=== PATIENT | female | born 2000 | race Caucasian/White ===

== ENCOUNTER 2024-07-11 19:32 | Emergency (ER) | payer OTHER ==
[2024-07-11 19:57] VITALS: TEMP 99.5
--- NOTE | 2024-07-11 20:06 | ERPHSYRPT ---
- History of Present Illness Time Seen by Provider: 07/11/24 19:51 Historian: patient, family Exam Limitations: no limitations Patient Subjective Stated Complaint: c/o left lower abdominal pain Triage Nursing Assessment: patient brought to ED by with c/o left lower abdominal pain. Patient stated that symptoms started yesterday morning. patient believes she is constipated. rates pain 8/10, bowel sounds present in all 4 quads, pain with palpation, nausea, denies V/D, denies radiating pain, hypertensive, skin w/n/d, brought in by wheelchair. Physician History: 23-year-old with history of PCOS, hypertension presented in the ER with complaint of left flank pain since yesterday. Patient reports 8/10 intensity sharp pain with some radiation to the left groin, associated nausea but no vomiting. Reports having loose stool since yesterday. Denies any urinary complaints. No vaginal bleeding or discharge. LMP 1 month ago. Allergies/Adverse Reactions: No Known Drug Allergies Allergy (Verified 07/11/24 19:58) Home Medications: lisinopriL [Lisinopril] 5 mg PO DAILY 07/11/24 [History] norethindrone ac-eth estradioL [Microgestin 21 1.5-30 Tab] 1 tab PO DAILY 07/11/24 [History] Hx Tetanus, Diphtheria Vaccination/Date Given: No (unknown) Hx Influenza Vaccination/Date Given: No Hx Pneumococcal Vaccination/Date Given: No Travel Risk - International Travel Have you traveled outside of the country in past 3 weeks: Yes ( has been out of the states) If Yes, where;: . - Emerging Infectious Disease Are you exhibiting symptoms associated with any current EIDs: Yes Symptoms: Abdominal Pain - Review of Systems Constitutional: No Symptoms Ears, Nose, & Throat: No Symptoms Respiratory: No Symptoms Cardiac: No Symptoms Abdominal/Gastrointestinal: Abdominal Pain, Nausea Genitourinary Symptoms: Flank Pain Musculoskeletal: No Symptoms Skin: No Symptoms Neurological: No Symptoms Endocrine: No Symptoms Hematologic/Lymphatic: No Symptoms - Past Medical History Pertinent Past Medical History: Yes Neurological History: No Pertinent History ENT History: No Pertinent History Cardiac History: Hypertension Respiratory History: No Pertinent History Endocrine Medical History: No Pertinent History Musculoskeletal History: No Pertinent History GI Medical History: No Pertinent History History: No Pertinent History Psycho-Social History: No Pertinent History Female Reproductive Disorders: No Pertinent History - Past Surgical History Past Surgical History: Yes Female Surgical History: Section Other Surgical History: in May, - Female History Hx Last Menstrual Period: a month ago Hx Now: No ( control) - Social History Smoking Status: Never smoker Exposure to second hand smoke: No Drug Use: none - Social Determinants of Health Will the patient participate in the screening: Yes Do you worry about a steady place to live?: No Do you have any problems with any of the following?: No known problems In the past 12 months,have you had to go without utilities?: No Transportation Issues: No Has anyone in your support network made you feel unsafe?: No Have you or anyone in your house had to go without enough: No - Nursing Vital Signs Nursing Vital Signs: Initial Vital Signs Temperature 99.5 F 07/11/24 19:43 Pulse Rate 92 H 07/11/24 19:43 Respiratory Rate 24 07/11/24 19:43 Blood Pressure 161/95 07/11/24 19:43 O2 Sat by Pulse Oximetry 100 07/11/24 19:43 Pain Scale Pain Intensity 3 - Physical Exam General Appearance: no apparent distress Eye Exam: PERRL/EOMI Ears, Nose, Throat Exam: normal ENT inspection Neck Exam: normal inspection, full range of motion Respiratory Exam: normal breath sounds, lungs clear Cardiovascular Exam: regular rate/rhythm, normal heart sounds Gastrointestinal/Abdomen Exam: soft, normal bowel sounds, tenderness (Left flank) Back Exam: normal inspection, normal range of motion, CVA tenderness (Left side) Extremity Exam: normal inspection, normal range of motion Neurologic Exam: alert, oriented x 3, cooperative Skin Exam: normal color SpO2 Interpretation: normal SpO2: 100 O2 Delivery: Room Air Ordered Tests: Active Orders 24 hr Category Date Time Status IV Insertion STAT Care 07/11/24 20:03 Active NPO (ED) STAT Care 07/11/24 20:03 Active ABDOMEN AND PELVIS W/0 CONTRAS [CT] Stat Exams 07/11/24 20:35 Taken CBC W DIFF Stat Lab 07/11/24 19:55 Completed CMP Stat Lab 07/11/24 19:55 Completed CULTURE,URINE Stat Lab 07/11/24 20:07 Received HCG QUALITATIVE, SERUM Stat Lab 07/11/24 19:55 Completed LIPASE Stat Lab 07/11/24 19:55 Completed Lactic Acid Stat Lab 07/11/24 20:03 Completed Lactic Acid Stat Lab 07/11/24 22:20 Received UA W/RFX UR CULTURE Stat Lab 07/11/24 20:07 Completed Medication Summary Discontinued Medications Generic Name Dose Route Start Last Admin Trade Name Monika PRN Reason Stop Dose Admin Sodium Chloride 1,000 mls @ 999 mls/hr 07/11/24 20:03 07/11/24 22:17 Sodium Chloride 0.9% 1000 Ml IV 07/11/24 21:03 Infused .Q1H1M STA Infusion Sodium Chloride Confirm 07/11/24 20:08 Sodium Chloride 0.9% 1000 Ml Administered 07/11/24 20:09 Dose 1,000 mls @ ud .ROUTE .STK-MED ONE Ceftriaxone Sodium 2 gm in 100 mls @ 200 mls/hr 07/11/24 22:06 07/11/24 22:19 Rocephin 2 Gm/100 Ml Nacl IV 07/11/24 22:35 200 mls/hr STAT ONE 200 mls/hr Administration Ceftriaxone Sodium Confirm 07/11/24 22:18 Rocephin 2 Gm/100 Ml Nacl Administered 07/11/24 22:19 Dose 2 gm in 100 mls @ ud IV .STK-MED ONE Ketorolac Tromethamine 30 mg 07/11/24 22:36 07/11/24 22:49 Ketorolac Tromethamine 30 Mg/Ml Inj IV 07/11/24 22:37 30 mg STAT ONE Administration Ketorolac Tromethamine Confirm 07/11/24 22:48 Ketorolac Tromethamine 30 Mg/Ml Inj Administered 07/11/24 22:49 Dose 30 mg .ROUTE .STK-MED ONE Morphine Sulfate 4 mg 07/11/24 20:03 07/11/24 20:13 Morphine Sulfate 4 Mg/Ml Injection IV 07/11/24 20:04 4 mg STAT ONE Administration Morphine Sulfate Confirm 07/11/24 20:08 Morphine Sulfate 4 Mg/Ml Injection Administered 07/11/24 20:09 Dose 4 mg .ROUTE .STK-MED ONE Ondansetron HCl 4 mg 07/11/24 20:03 07/11/24 20:12 Ondansetron Hcl 4 Mg/2 Ml Vial IV 07/11/24 20:04 4 mg STAT ONE Administration Ondansetron HCl Confirm 07/11/24 20:08 Ondansetron Hcl 4 Mg/2 Ml Vial Administered 07/11/24 20:09 Dose 4 mg .ROUTE .K-MED ONE Lab/Rad Data: Laboratory Result Diagrams 07/11/24 19:55 07/11/24 19:55 Laboratory Results 07/11/24 07/11/24 07/11/24 Range/Units 20:07 20:03 19:55 WBC (3.98-10.04) x10^3/uL RBC (3.93-5.22) x10^6/uL Hgb (11.2-15.7) g/dL Hct (34.1-44.9) % MCV (79.4-94.8) fL MCH (25.6-32.2) pg MCHC (32.2-35.5) g/dL RDW (11.7-14.4) % Plt Count (182-369) x10^3/uL MPV (9.4-12.3) fL Gran % (34.0-71.1) % Immature Gran % (Auto) (0.001-0.429) % Nucleat RBC Rel Count (0.00-0.2) % Eos # (Auto) (0.04-0.36) x10^3/uL Immature Gran # (Auto) (0.001-0.031) x10^3u/L Absolute Lymphs (auto) (1.18-3.74) x10^3/uL Absolute Monos (auto) (0.24-0.86) x10^3/uL Absolute Nucleated RBC (0.00-0.012) x10^3u/L Lymphocytes % (19.3-51.7) % Monocytes % (4.7-12.5) % Eosinophils % (0.7-5.8) % Basophils % (0.1-1.2) % Absolute Granulocytes (1.56-6.13) x10^3/uL Basophils # (0.01-0.08) x10^3/uL Sodium (135-145) mmol/L Potassium (3.5-5.1) mmol/L Chloride (98-107) mmol/L Carbon Dioxide (22-30) mmol/L Anion Gap (5-15) MEQ/L BUN (7-17) mg/dL Creatinine (0.52-1.04) mg/dL Estimated GFR ML/MIN Glucose (74-106) mg/dL Lactic Acid 2.7 H (0.4-2.0) Calcium (8.4-10.2) mg/dL Total Bilirubin (0.2-1.3) mg/dL AST (14-36) U/L ALT (0-35) U/L Alkaline Phosphatase (38-126) U/L Serum Total Protein (6.3-8.2) g/dL Albumin (3.5-5.0) g/dL Lipase (23-300) U/L Serum HCG, Qual NEGATIVE (NEGATIVE) Urine Color Yellow (Yellow) Urine Appearance Clear (Clear) Urine pH 7.5 (4.6-8.0) Ur Specific [place] 1.015 (1.005-1.030) Urine Protein 300 A (Negative) Urine Glucose (UA) Negative (Negative) mg/dL Urine Ketones Negative (Negative) Urine Blood Negative (Negative) Urine Nitrite Negative (Negative) Urine Bilirubin Negative (Negative) Urine Urobilinogen 0.2 (0.2) mg/dL Ur Leukocyte Esterase Trace A (Negative) U Hyaline Cast (Auto) NONE SEEN (0-2) /LPF Urine Microscopic RBC 0-2 (0-5) /HPF Urine Microscopic WBC 21-50 A (0-5) /HPF Ur Epithelial Cells Few (None Seen) /HPF Urine Bacteria Few A (None Seen) /HPF Urine Culture Reflexed YES (NO) 07/11/24 07/11/24 Range/Units 19:55 19:55 WBC 10.1 H (3.98-10.04) x10^3/uL RBC 4.55 (3.93-5.22) x10^6/uL Hgb 12.6 (11.2-15.7) g/dL Hct 38.2 (34.1-44.9) % MCV 84.0 (79.4-94.8) fL MCH 27.7 (25.6-32.2) pg MCHC 33.0 (32.2-35.5) g/dL RDW 12.0 (11.7-14.4) % Plt Count 482 H (182-369) x10^3/uL MPV 10.1 (9.4-12.3) fL Gran % 64.8 (34.0-71.1) % Immature Gran % (Auto) 0.2 (0.001-0.429) % Nucleat RBC Rel Count 0.0 (0.00-0.2) % Eos # (Auto) 0.16 (0.04-0.36) x10^3/uL Immature Gran # (Auto) 0.02 (0.001-0.031) x10^3u/L Absolute Lymphs (auto) 2.77 (1.18-3.74) x10^3/uL Absolute Monos (auto) 0.59 (0.24-0.86) x10^3/uL Absolute Nucleated RBC 0.00 (0.00-0.012) x10^3u/L Lymphocytes % 27.4 (19.3-51.7) % Monocytes % 5.8 (4.7-12.5) % Eosinophils % 1.6 (0.7-5.8) % Basophils % 0.2 (0.1-1.2) % Absolute Granulocytes 6.54 H (1.56-6.13) x10^3/uL Basophils # 0.02 (0.01-0.08) x10^3/uL Sodium 139 (135-145) mmol/L Potassium 4.4 (3.5-5.1) mmol/L Chloride 104 (98-107) mmol/L Carbon Dioxide 22 (22-30) mmol/L Anion Gap 16.2 H (5-15) MEQ/L BUN 7 (7-17) mg/dL Creatinine 0.68 (0.52-1.04) mg/dL Estimated GFR 124.7 ML/MIN Glucose 106 (74-106) mg/dL Lactic Acid (0.4-2.0) Calcium 9.9 (8.4-10.2) mg/dL Total Bilirubin 0.40 (0.2-1.3) mg/dL AST 21 (14-36) U/L ALT 19 (0-35) U/L Alkaline Phosphatase 68 (38-126) U/L Serum Total Protein 7.7 (6.3-8.2) g/dL Albumin 4.6 (3.5-5.0) g/dL Lipase 84 (23-300) U/L Serum HCG, Qual (NEGATIVE) Urine Color (Yellow) Urine Appearance (Clear) Urine pH (4.6-8.0) Ur Specific [place] (1.005-1.030) Urine Protein (Negative) Urine Glucose (UA) (Negative) mg/dL Urine Ketones (Negative) Urine Blood (Negative) Urine Nitrite (Negative) Urine Bilirubin (Negative) Urine Urobilinogen (0.2) mg/dL Ur Leukocyte Esterase (Negative) U Hyaline Cast (Auto) (0-2) /LPF Urine Microscopic RBC (0-5) /HPF Urine Microscopic WBC (0-5) /HPF Ur Epithelial Cells (None Seen) /HPF Urine Bacteria (None Seen) /HPF Urine Culture Reflexed (NO) - Progress Progress: improved, re-examined Progress Note: 07/11/24 23:15 23-year-old is evaluated in the ER for left flank pain since yesterday with nausea but no vomiting. She is given fluids and symptomatic treatment, on reevaluation her pain is much improved. No peritoneal signs on repeated eval. Has a white count of 10, chemistries fairly unremarkable except for lactate of 2.7 and patient received fluid, does have UTI. She is given a dose of Rocephin. CT abdomen pelvis without contrast is negative for any obstructive stone but did show some stranding and mild dilatation of proximal ureter 7 to 8 mm suggesting recently passed stone versus ureteritis. Patient has no hematuria and has no history of ureterolithiasis, less likely stone but I believe it is more of a infectious etiology. I have discussed with patient the results of workup, also observation at hospital versus going home and she prefers to go home which is reasonable and we will treat it with cefpodoxime to cover for upper urinary tract infection as well. Recommended taking pain medications as needed and outpatient follow-up with primary care and urology. Discussed signs symptoms of worsening needing return to ER which she seems understanding. Stable for discharge. Counseled pt/family regarding: lab results, diagnosis, need for follow-up, rad results Medical Desision Making - Independent Historian Additional History obtained from: Spouse - Diagnostic Testing Diagnostic test were ordered, analyzed, and reviewed by me: Yes Radiological Interpretation: Reviewed by me - Risk of complications The pt has a mod risk of morbidity or mortality based on: Need for prescription drug management - Departure Departure Disposition: Home Clinical Impression: Acute upper urinary tract infection Condition: Stable Critical Care Time: No Referrals: DAVID GIPSON MD [Primary Care Provider] - Follow up/PCP as directed Instructions: Urinary tract infection in adults - ED discharge instructions Additional Instructions: Take ibuprofen and Watson as needed. Drink plenty of fluids. Follow-up with primary care and urology for reevaluation. Return to ER for intractable pain/vomiting/fever chills/difficulty urination etc. Prescriptions: Hydrocodone/Acetaminophen [Hydrocodone-Acetamin 5-325 mg] 1 tab PO Q6HPRN PRN 3 Days #7 tablet MDD 4 PRN Reason: Pain Cefpodoxime Proxetil 200 mg [Vantin 200 mg] 200 mg PO BID 7 Days #14 tablet
[2024-07-11 20:07] LABS: Absolute Neutrophil Ct (ANC) 6.54 x10^3/uL (1.56-6.13); BASOPHIL % 0.2 % (0.1-1.2); Basophil (Absolute #) 0.02 x10^3/uL (0.01-0.08); Eosinophil % 1.6 % (0.7-5.8); Eosinophil (Absolute #) 0.16 x10^3/uL (0.04-0.36); Hematocrit 38.2 % (34.1-44.9); Hemoglobin 12.6 g/dL (11.2-15.7); IMMATURE GRAN # 0.02 x10^3u/L (0.001-0.031); IMMATURE GRAN % 0.2 % (0.001-0.429); Lymphocyte (Absolute #) 2.77 x10^3/uL (1.18-3.74); Lymphocytes % 27.4 % (19.3-51.7); Mean Corpuscular Hemoglobin 27.7 pg (25.6-32.2); Mean Platelet Volume 10.1 fL (9.4-12.3); Monocyte (Absolute #) 0.59 x10^3/uL (0.24-0.86); Monocytes % 5.8 % (4.7-12.5); Neutrophil % 64.8 % (34.0-71.1); Platelet Count 482 x10^3/uL (182-369); Red Blood Count 4.55 x10^6/uL (3.93-5.22); White Blood Count 10.1 x10^3/uL (3.98-10.04)
[2024-07-11] MEDS ORDERED: MORPHINE SULFATE 4 MG INJ ONE (20:08)
[2024-07-11] MEDS ORDERED: Zofran 4 MG/2 ML VIAL ONE (20:08)
[2024-07-11] MEDS ORDERED: Sodium Chloride 0.9% 1000 ML 1,000 ML ONE (20:08)
[2024-07-11] MEDS: Sodium Chloride 0.9% 1000 ML 1,000 ML IV STA (20:10)
[2024-07-11] MEDS: Zofran 4 MG/2 ML VIAL IV ONE (20:12)
[2024-07-11] MEDS: MORPHINE SULFATE 4 MG INJ IV ONE (20:13)
[2024-07-11 20:14] LABS: Appearance Clear (Clear); Bacteria Few /HPF (None Seen); Bilirubin Negative (Negative); Blood Negative (Negative); Epithelial Cells Few /HPF (None Seen); Glucose, Urine Negative (Negative); Hyaline Casts NONE SEEN /LPF (0-2); Ketones Negative (Negative); Leukocyte Esterase Trace (Negative); Nitrite Negative (Negative); Ph 7.5 (4.6-8.0); Protein,Urine Dip 300 (Negative); RBC 0-2 /HPF (0-5); Specific Gravity 1.015 (1.005-1.030); Urobilinogen 0.2 mg/dL (0.2); WBC 21-50 /HPF (0-5)
[2024-07-11 20:24] LABS: HCG SERUM TEST NEGATIVE (NEGATIVE)
[2024-07-11 20:25] LABS: ALBUMIN 4.6 g/dL (3.5-5.0); ANION GAP 16.2 MEQ/L (5-15); BILIRUBIN,TOTAL 0.4 mg/dL (0.2-1.3); Calcium 9.9 mg/dL (8.4-10.2); Creatinine 1 0.68 mg/dL (0.52-1.04); EST GLOMERULAR FILTRATION RATE 124.7 ML/MIN; Potassium 4.4 mmol/L (3.5-5.1); Total Protein 7.7 g/dL (6.3-8.2)
[2024-07-11 21:01] VITALS: RESP 19
[2024-07-11] MEDS ORDERED: ROCEPHIN 2 GM/100 ML NACL 2 GM/100 ML IVPB IV ONE (22:18)
[2024-07-11] MEDS: ROCEPHIN 2 GM/100 ML NACL 2 GM/100 ML IVPB IV ONE (22:19)
[2024-07-11] MEDS ORDERED: TORAdol 30 mg Injection ONE (22:48)
[2024-07-11] MEDS: TORAdol 30 mg Injection IV ONE (22:49)
[2024-07-11 23:09] VITALS: BP 139/96; PULSE 106
[2024-07-11 23:23] VITALS: O2SAT 100
[2024-07-11] MEDS: NORCO 5/325 MG PO ONE (23:28)
[2024-07-11] MEDS ORDERED: NORCO 5/325 MG ONE (23:28)
--- NOTE | 2024-07-12 09:37 | XRAY ---
Indication: Left flank pain. Multiple contiguous axial images obtained through abdomen and pelvis without contrast using renal stone protocol. Comparison: None Lung bases clear. Heart not enlarged. No renal calculus in either system. Proximal left ureter is prominent up to 7-8 mm with stranding either from recent passage of calculus versus ureteritis. No free fluid/air. Remaining liver, gallbladder, pancreas, spleen, adrenal glands, kidneys, ureters, bladder, uterus, and aorta are unremarkable for noncontrast exam. Osseous structures intact. No ventral inguinal hernias. Impression: No renal calculus in either system. Prominent proximal left ureter with stranding either from recent passage of calculus versus ureteritis. Remaining CT abdomen/pelvis without contrast exam is negative.
== END 2024-07-11 23:37 | disposition home or self-care (01) ==
LOC: ED 19:32
DX: N39.0 Urinary tract infection, site not specified (principal); R10.9 Unspecified abdominal pain; R11.0 Nausea; I10 Essential (primary) hypertension; Z79.891 Long term (current) use of opiate analgesic; Z79.899 Other long term (current) drug therapy
CPT/HCPCS: 36415; 74176; 80053; 81001; 83605; 83690; 84703; 85025; 87086; 96360; 96361; 96374; 96375; 99284; 99285; J0696; J1885; J2270; J2405; A9270-GY